=== PATIENT | female | born 1940 | race Caucasian/White ===

== ENCOUNTER 2019-09-11 18:55 | Inpatient (IN) ==
[2019-09-11] MEDS ORDERED: ONDANSETRON 4 MG/2 ML VIAL IV STA (19:47)
[2019-09-11] MEDS ORDERED: DIPH/TET/ACEL PERT BOOSTER VACCINE 0.5 ML VIAL IM ONE (19:47)
[2019-09-11] MEDS ORDERED: SODIUM CHLORIDE 0.9% 1,000 ML IV STA (19:47)
[2019-09-11 19:54] LABS: Basophils % 0.1 % (0.0-0.8); Eosinophils % 0.1 % (0.00-10.9); Hemoglobin 12.3 GM/DL (12.0-16.0); Immature Granulocytes % 0.5 %; Immature Granulocytes Absolute 0.06 #; Lymphocytes # 1.1 10*3/uL (1.4-4.0); Lymphocytes % 9.7 % (21.3-54.2); Mean Corpuscular HGB Conc 30.8 GM/DL (32-36); Mean Platelet Volume 10.6 FL (9.6-12.0); Monocytes % 5.8 % (1.7-12.7); Neutrophils % 83.8 % (38.7-73.9); Platelet Count 189 T/CUMM (130-400); Red Blood Count 4.21 MC/CUMM (3.8-5.5); Red Cell Distribution Width 15.5 % (9.3-17.3); White Blood Count 11.5 T/CUMM (4-12)
[2019-09-11 19:59] LABS: PT Patient Result 10.8 SECS (9.6-12.2)
[2019-09-11 20:17] LABS: Alanine Aminotransferase 41 U/L (13-56); Albumin 3.6 G/DL (3.4-5.0); Alkaline Phosphatase 67 U/L (45-117); Aspartate Amino Transferase 83 U/L (0-37); Blood Urea Nitrogen 36 MG/DL (7-18); CKMB % 1.5 %; Calcium 9.7 MG/DL (8.5-10.1); Estimated Glom Filtration Rate 70 ML/MIN; Glucose 97 MG/DL (74-106); Osmolality,Calculated 282.7 MOS/KG (273-304); Total Protein 7.4 G/DL (6.4-8.3); Troponin I 0.035 NG/ML (0.00-0.045)
[2019-09-11 20:30] LABS: Apearance,Urine CLEAR (Clear); Bacteria,Urine Occasional /HPF (Few); Bilirubin,Urine Negative (Negative); Blood, Urine Small mg/dL (Negative); Glucose,Urine (UA) Negative (Negative); Ketones,Urine 20 mg/dL (Negative); Nitrite,Urine Negative (Negative); Protein,Urine 100 MG/DL; RBC,Urine 2 /HPF (0-4); Squamous Epithelial Cell,Urine Occasional /HPF (0-10); Urine Color Yellow (Yellow); Urine Specific Gravity 1.021 (1.001-1.035); Urine Urobilinogen < 2.0 EU/DL (0.2-1.0); WBC,Urine 8 /HPF (0-6)
[2019-09-11 20:33] LABS: Barbiturates Screen,Urine Negative (Negative); Benzodiazepines Screen,Urine Negative (Negative); Cannabinoid Screen,Urine Negative (Negative); Opiate Screen,Urine Negative (Negative); Phencyclidine Screen,Urine Negative (Negative)
[2019-09-11] MEDS ORDERED: PIPERACILLIN/TAZOBACTAM 3,375 MG in SODIUM CHLORIDE 0.9% 100 ML IV STA (20:45)
[2019-09-11] MEDS ORDERED: DILTIAZEM 50 MG/10 ML VIAL IV STA (20:53)
[2019-09-11] MEDS ORDERED: ONDANSETRON 4 MG/2 ML VIAL IV PRN (22:56)
[2019-09-11] MEDS ORDERED: HYDROmorphone 2 MG/1 ML VIAL IV PRN (22:56)
[2019-09-11] MEDS: SODIUM CHLORIDE 0.9% 1,000 ML IV SCH (23:30)
[2019-09-12 00:22] LABS: Apearance,Urine CLEAR (Clear); Bilirubin,Urine Negative (Negative); Blood, Urine Small mg/dL (Negative); Glucose,Urine (UA) Negative (Negative); Hyaline Casts,Urine 4 /LPF (0-3); Ketones,Urine 20 mg/dL (Negative); Mucus,Urine Occasional /LPF (Occasional); Nitrite,Urine Negative (Negative); Protein,Urine 30 MG/DL; RBC,Urine 1 /HPF (0-4); Urine Color Yellow (Yellow); Urine Specific Gravity 1.021 (1.001-1.035); Urine Urobilinogen < 2.0 EU/DL (0.2-1.0); WBC,Urine 3 /HPF (0-6)
[2019-09-12] MEDS: ALBUTEROL/IPRATROPIUM 3 ML NEB RESP TX SCH ×6 (00:35→19:55)
[2019-09-12] MEDS: PIPERACILLIN/TAZOBACTAM 3,375 MG in SODIUM CHLORIDE 0.9% 100 ML IV SCH ×3 (04:39→22:20)
[2019-09-12 05:44] LABS: Albumin 2.8 G/DL (3.4-5.0); CKMB % 1.2 %; Calcium 8.6 MG/DL (8.5-10.1); Osmolality,Calculated 289.1 MOS/KG (273-304); Risk Ratio 3.68; VLDL CHOLESTEROL 18.6 MG/DL
[2019-09-12 05:45] LABS: Troponin I 0.05 NG/ML (0.00-0.045)
[2019-09-12 05:51] LABS: Basophils % 0.3 % (0.0-0.8); Eosinophils # 0.1 10*3/uL (0.0-0.87); Eosinophils % 0.6 % (0.00-10.9); Hematocrit 34.7 VOL% (35.7-47.0); Hemoglobin 10.6 GM/DL (12.0-16.0); Immature Granulocytes % 0.3 %; Immature Granulocytes Absolute 0.03 #; Lymphocytes % 11.1 % (21.3-54.2); Mean Corpuscular HGB Conc 30.5 GM/DL (32-36); Mean Corpuscular Volume 95.3 FL (87-102); Mean Platelet Volume 10.5 FL (9.6-12.0); Neutrophils % 79.7 % (38.7-73.9); Platelet Count 151 T/CUMM (130-400); Red Blood Count 3.64 MC/CUMM (3.8-5.5); Red Cell Distribution Width 15.6 % (9.3-17.3); White Blood Count 8.7 T/CUMM (4-12)
[2019-09-12] MEDS: SODIUM CHLORIDE 0.9% 1,000 ML IV SCH ×3 (07:57→21:24)
[2019-09-12] MEDS: PANTOPRAZOLE 40 MG VIAL IV SCH (08:58)
[2019-09-12] MEDS: DOCUSATE SODIUM 100 MG CAPSULE PO SCH ×2 (08:58→22:22)
[2019-09-12] MEDS: MENTHOL/ZINC OXIDE OINT 71 GM JAR TOP SCH ×2 (12:53→22:22)
[2019-09-12] MEDS: ACETAMINOPHEN 325 MG TABLET PO PRN (13:10)
[2019-09-12] MEDS ORDERED: POTASSIUM CHLORIDE 20 MEQ TABLET PO ONE (19:30)
[2019-09-12] MEDS: FERROUS SULFATE 325 MG TABLET PO SCH (22:22)
[2019-09-12] MEDS: carvediloL 12.5 MG TABLET PO SCH (22:22)
[2019-09-13] MEDS: ALBUTEROL/IPRATROPIUM 3 ML NEB RESP TX SCH ×7 (00:59→23:01)
[2019-09-13] MEDS: PIPERACILLIN/TAZOBACTAM 3,375 MG in SODIUM CHLORIDE 0.9% 100 ML IV SCH ×3 (05:26→21:05)
[2019-09-13 05:53] LABS: Basophils % 0.6 % (0.0-0.8); Eosinophils # 0.1 10*3/uL (0.0-0.87); Eosinophils % 1.9 % (0.00-10.9); Hematocrit 31.6 VOL% (35.7-47.0); Hemoglobin 9.9 GM/DL (12.0-16.0); Immature Granulocytes % 0.2 %; Immature Granulocytes Absolute 0.01 #; Lymphocytes # 1.1 10*3/uL (1.4-4.0); Lymphocytes % 20.4 % (21.3-54.2); Mean Corpuscular HGB Conc 31.3 GM/DL (32-36); Mean Corpuscular Volume 95.2 FL (87-102); Mean Platelet Volume 10.8 FL (9.6-12.0); Monocytes % 9.8 % (1.7-12.7); Neutrophils % 67.1 % (38.7-73.9); Platelet Count 135 T/CUMM (130-400); Red Blood Count 3.32 MC/CUMM (3.8-5.5); Red Cell Distribution Width 15.5 % (9.3-17.3); White Blood Count 5.2 T/CUMM (4-12)
[2019-09-13 06:09] LABS: Calcium 8.3 MG/DL (8.5-10.1); Osmolality,Calculated 285.3 MOS/KG (273-304)
[2019-09-13] MEDS ORDERED: ASPIRIN EC 81 MG TABLET PO SCH (08:00)
[2019-09-13] MEDS: POTASSIUM CHLORIDE 20 MEQ TABLET PO SCH (08:55)
[2019-09-13] MEDS: carvediloL 12.5 MG TABLET PO SCH ×2 (08:55→21:03)
[2019-09-13] MEDS: ASPIRIN EC 325 MG TABLET PO SCH (08:55)
[2019-09-13] MEDS: FERROUS SULFATE 325 MG TABLET PO SCH ×2 (08:55→21:03)
[2019-09-13] MEDS: DOCUSATE SODIUM 100 MG CAPSULE PO SCH (08:55)
[2019-09-13] MEDS: FEXOFENADINE 180 MG TABLET PO SCH (08:56)
[2019-09-13] MEDS: PANTOPRAZOLE 40 MG VIAL IV SCH (08:56)
[2019-09-13] MEDS: ESCITALOPRAM 10 MG TABLET PO SCH (08:56)
[2019-09-13] MEDS: MENTHOL/ZINC OXIDE OINT 71 GM JAR TOP SCH ×2 (09:51→21:08)
[2019-09-13] MEDS: ACETAMINOPHEN 325 MG TABLET PO PRN ×2 (09:51→21:03)
[2019-09-13] MEDS: SODIUM CHLORIDE 0.9% 1,000 ML IV SCH ×2 (11:57→20:28)
[2019-09-13] MEDS: DIGOXIN 0.125 MG TABLET PO SCH (12:34)
[2019-09-13] MEDS: traMADol 50 MG TABLET PO PRN (12:35)
[2019-09-13] MEDS: MELATONIN 3 MG TABLET PO PRN (21:03)
[2019-09-14] MEDS: ALBUTEROL/IPRATROPIUM 3 ML NEB RESP TX SCH ×6 (02:20→23:46)
[2019-09-14] MEDS: ACETAMINOPHEN 325 MG TABLET PO PRN ×4 (04:16→23:52)
[2019-09-14] MEDS: PIPERACILLIN/TAZOBACTAM 3,375 MG in SODIUM CHLORIDE 0.9% 100 ML IV SCH ×3 (04:18→21:54)
[2019-09-14] MEDS: SODIUM CHLORIDE 0.9% 1,000 ML IV SCH ×2 (04:21→15:42)
[2019-09-14 04:55] LABS: Basophils % 0.6 % (0.0-0.8); Eosinophils # 0.2 10*3/uL (0.0-0.87); Eosinophils % 3.5 % (0.00-10.9); Hematocrit 32.5 VOL% (35.7-47.0); Hemoglobin 9.8 GM/DL (12.0-16.0); Immature Granulocytes % 0.2 %; Immature Granulocytes Absolute 0.01 #; Lymphocytes % 19.9 % (21.3-54.2); Mean Corpuscular HGB Conc 30.2 GM/DL (32-36); Mean Corpuscular Volume 97.3 FL (87-102); Mean Platelet Volume 10.5 FL (9.6-12.0); Monocytes % 8.1 % (1.7-12.7); Neutrophils % 67.7 % (38.7-73.9); Platelet Count 147 T/CUMM (130-400); Red Blood Count 3.34 MC/CUMM (3.8-5.5); Red Cell Distribution Width 15.6 % (9.3-17.3); White Blood Count 4.8 T/CUMM (4-12)
[2019-09-14 05:34] LABS: Calcium 8.4 MG/DL (8.5-10.1); Osmolality,Calculated 285.1 MOS/KG (273-304)
[2019-09-14] MEDS: FEXOFENADINE 180 MG TABLET PO SCH (10:03)
[2019-09-14] MEDS: FERROUS SULFATE 325 MG TABLET PO SCH ×2 (10:03→21:53)
[2019-09-14] MEDS: POTASSIUM CHLORIDE 20 MEQ TABLET PO SCH (10:03)
[2019-09-14] MEDS: PANTOPRAZOLE 40 MG VIAL IV SCH (10:03)
[2019-09-14] MEDS: ASPIRIN EC 325 MG TABLET PO SCH (10:03)
[2019-09-14] MEDS: ESCITALOPRAM 10 MG TABLET PO SCH (10:03)
[2019-09-14] MEDS: carvediloL 12.5 MG TABLET PO SCH ×2 (10:03→21:53)
[2019-09-14] MEDS: MENTHOL/ZINC OXIDE OINT 71 GM JAR TOP SCH ×2 (10:04→21:53)
[2019-09-14] MEDS: DIGOXIN 0.125 MG TABLET PO SCH (12:54)
[2019-09-14] MEDS ORDERED: LEVOFLOXACIN INJ 500 MG in PREMIX 1 EACH IV SCH (13:30)
[2019-09-14] MEDS: LEVOFLOXACIN INJ 500 MG in PREMIX 1 EACH IV SCH (17:09)
[2019-09-14] MEDS: MELATONIN 3 MG TABLET PO PRN (21:53)
[2019-09-15] MEDS: SODIUM CHLORIDE 0.9% 1,000 ML IV SCH ×3 (01:59→22:18)
[2019-09-15] MEDS: ALBUTEROL/IPRATROPIUM 3 ML NEB RESP TX SCH ×5 (03:52→20:00)
[2019-09-15] MEDS: PIPERACILLIN/TAZOBACTAM 3,375 MG in SODIUM CHLORIDE 0.9% 100 ML IV SCH ×3 (05:15→21:39)
[2019-09-15 05:40] LABS: Basophils % 0.9 % (0.0-0.8); Eosinophils # 0.2 10*3/uL (0.0-0.87); Eosinophils % 4.3 % (0.00-10.9); Hematocrit 32.4 VOL% (35.7-47.0); Hemoglobin 9.7 GM/DL (12.0-16.0); Immature Granulocytes % 0.2 %; Immature Granulocytes Absolute 0.01 #; Lymphocytes # 0.9 10*3/uL (1.4-4.0); Lymphocytes % 19.8 % (21.3-54.2); Mean Corpuscular HGB Conc 29.9 GM/DL (32-36); Mean Corpuscular Volume 98.8 FL (87-102); Mean Platelet Volume 10.9 FL (9.6-12.0); Monocytes % 8.2 % (1.7-12.7); Neutrophils % 66.6 % (38.7-73.9); Platelet Count 154 T/CUMM (130-400); Red Blood Count 3.28 MC/CUMM (3.8-5.5); Red Cell Distribution Width 15.8 % (9.3-17.3); White Blood Count 4.6 T/CUMM (4-12)
[2019-09-15 05:56] LABS: Albumin 2.5 G/DL (3.4-5.0); Bilirubin,Total 0.9 MG/DL (0.2-1.0); Calcium 8.4 MG/DL (8.5-10.1); Total Protein 5.5 G/DL (6.4-8.3)
[2019-09-15] MEDS: ESCITALOPRAM 10 MG TABLET PO SCH (08:43)
[2019-09-15] MEDS: FERROUS SULFATE 325 MG TABLET PO SCH ×2 (08:43→21:39)
[2019-09-15] MEDS: ACETAMINOPHEN 325 MG TABLET PO PRN ×3 (08:44→22:03)
[2019-09-15] MEDS: POTASSIUM CHLORIDE 20 MEQ TABLET PO SCH (08:44)
[2019-09-15] MEDS: ASPIRIN EC 325 MG TABLET PO SCH (08:44)
[2019-09-15] MEDS: carvediloL 12.5 MG TABLET PO SCH ×2 (08:44→21:39)
[2019-09-15] MEDS: FEXOFENADINE 180 MG TABLET PO SCH (08:45)
[2019-09-15] MEDS: PANTOPRAZOLE 40 MG VIAL IV SCH (08:45)
[2019-09-15] MEDS: MENTHOL/ZINC OXIDE OINT 71 GM JAR TOP SCH ×2 (08:45→21:48)
[2019-09-15] MEDS: DIGOXIN 0.125 MG TABLET PO SCH (14:24)
[2019-09-15] MEDS: LEVOFLOXACIN INJ 500 MG in PREMIX 1 EACH IV SCH (17:13)
[2019-09-15] MEDS: ALUMINUM/MAGNES/SIMETH MAX STR 30 ML UDCUP PO PRN (17:13)
[2019-09-15] MEDS: traMADol 50 MG TABLET PO PRN (17:21)
[2019-09-15] MEDS: MEGESTROL 400 MG/10 ML UDCUP PO SCH (21:39)
[2019-09-15] MEDS: MELATONIN 3 MG TABLET PO PRN (21:39)
[2019-09-16] MEDS: ALBUTEROL/IPRATROPIUM 3 ML NEB RESP TX SCH ×6 (00:11→19:50)
[2019-09-16] MEDS: PIPERACILLIN/TAZOBACTAM 3,375 MG in SODIUM CHLORIDE 0.9% 100 ML IV SCH ×3 (05:32→21:33)
[2019-09-16] MEDS: SODIUM CHLORIDE 0.9% 1,000 ML IV SCH (06:20)
[2019-09-16] MEDS: FERROUS SULFATE 325 MG TABLET PO SCH ×2 (09:31→21:29)
[2019-09-16] MEDS: POTASSIUM CHLORIDE 20 MEQ TABLET PO SCH (09:31)
[2019-09-16] MEDS: carvediloL 12.5 MG TABLET PO SCH ×2 (09:31→21:28)
[2019-09-16] MEDS: SERTRALINE 25 MG TABLET PO SCH (09:31)
[2019-09-16] MEDS: ASPIRIN EC 325 MG TABLET PO SCH (09:31)
[2019-09-16] MEDS: PANTOPRAZOLE 40 MG VIAL IV SCH (09:32)
[2019-09-16] MEDS: MEGESTROL 400 MG/10 ML UDCUP PO SCH ×2 (09:32→21:28)
[2019-09-16] MEDS: FEXOFENADINE 180 MG TABLET PO SCH (09:32)
[2019-09-16] MEDS: MENTHOL/ZINC OXIDE OINT 71 GM JAR TOP SCH ×2 (09:35→21:29)
[2019-09-16] MEDS: traMADol 50 MG TABLET PO PRN ×2 (10:15→21:28)
[2019-09-16] MEDS: ALUMINUM/MAGNES/SIMETH MAX STR 30 ML UDCUP PO PRN ×2 (11:57→21:59)
[2019-09-16] MEDS: DIGOXIN 0.125 MG TABLET PO SCH (13:08)
[2019-09-16] MEDS: ACETAMINOPHEN 325 MG TABLET PO PRN (13:09)
[2019-09-16 14:07] LABS: Troponin I 0.346 NG/ML (0.00-0.045)
[2019-09-16] MEDS: LEVOFLOXACIN INJ 500 MG in PREMIX 1 EACH IV SCH (18:04)
[2019-09-16] MEDS: RIVAROXABAN 15 MG TABLET PO SCH (21:29)
[2019-09-16] MEDS: MELATONIN 3 MG TABLET PO PRN (21:29)
[2019-09-17] MEDS: ALBUTEROL/IPRATROPIUM 3 ML NEB RESP TX SCH ×6 (00:11→19:28)
[2019-09-17] MEDS: ACETAMINOPHEN 325 MG TABLET PO PRN (05:55)
[2019-09-17] MEDS: PIPERACILLIN/TAZOBACTAM 3,375 MG in SODIUM CHLORIDE 0.9% 100 ML IV SCH ×3 (05:56→21:49)
[2019-09-17 05:57] LABS: Basophils % 0.5 % (0.0-0.8); Eosinophils # 0.2 10*3/uL (0.0-0.87); Eosinophils % 2.9 % (0.00-10.9); Hematocrit 33.1 VOL% (35.7-47.0); Hemoglobin 9.9 GM/DL (12.0-16.0); Immature Granulocytes % 0.4 %; Immature Granulocytes Absolute 0.02 #; Lymphocytes # 1.1 10*3/uL (1.4-4.0); Lymphocytes % 19.5 % (21.3-54.2); Mean Corpuscular HGB Conc 29.9 GM/DL (32-36); Mean Corpuscular Volume 97.1 FL (87-102); Mean Platelet Volume 10.5 FL (9.6-12.0); Monocytes % 6.8 % (1.7-12.7); Neutrophils % 69.9 % (38.7-73.9); Platelet Count 167 T/CUMM (130-400); Red Blood Count 3.41 MC/CUMM (3.8-5.5); Red Cell Distribution Width 15.5 % (9.3-17.3); White Blood Count 5.6 T/CUMM (4-12)
[2019-09-17 06:15] LABS: Calcium 8.5 MG/DL (8.5-10.1); Osmolality,Calculated 280.4 MOS/KG (273-304)
[2019-09-17] MEDS: FEXOFENADINE 180 MG TABLET PO SCH (08:26)
[2019-09-17] MEDS: FERROUS SULFATE 325 MG TABLET PO SCH ×2 (08:26→21:49)
[2019-09-17] MEDS: SERTRALINE 25 MG TABLET PO SCH (08:26)
[2019-09-17] MEDS: OLMESARTAN 20 MG TABLET PO SCH (08:26)
[2019-09-17] MEDS: POTASSIUM CHLORIDE 20 MEQ TABLET PO SCH (08:26)
[2019-09-17] MEDS: carvediloL 12.5 MG TABLET PO SCH (08:26)
[2019-09-17] MEDS: ASPIRIN EC 325 MG TABLET PO SCH (08:26)
[2019-09-17] MEDS: MEGESTROL 400 MG/10 ML UDCUP PO SCH ×2 (08:27→21:49)
[2019-09-17] MEDS: PANTOPRAZOLE 40 MG VIAL IV SCH (08:27)
[2019-09-17] MEDS: traMADol 50 MG TABLET PO PRN ×2 (08:28→21:48)
[2019-09-17] MEDS: MENTHOL/ZINC OXIDE OINT 71 GM JAR TOP SCH ×2 (08:34→21:57)
[2019-09-17] MEDS ORDERED: FUROSEMIDE 20 MG/2 ML VIAL IV ONE (11:00)
[2019-09-17] MEDS: DIGOXIN 0.125 MG TABLET PO SCH (13:28)
[2019-09-17] MEDS ORDERED: TUBERCULIN SKIN TEST 0.1 ML SYRINGE INTRADERM ONE (15:00)
[2019-09-17] MEDS: LEVOFLOXACIN INJ 500 MG in PREMIX 1 EACH IV SCH (16:08)
[2019-09-17] MEDS: carvediloL 25 MG TABLET PO SCH (16:10)
[2019-09-17] MEDS: MELATONIN 3 MG TABLET PO PRN (21:48)
[2019-09-17] MEDS: RIVAROXABAN 15 MG TABLET PO SCH (21:49)
[2019-09-18] MEDS: ALBUTEROL/IPRATROPIUM 3 ML NEB RESP TX SCH ×6 (00:35→18:42)
[2019-09-18] MEDS: ACETAMINOPHEN 325 MG TABLET PO PRN ×3 (02:24→21:52)
[2019-09-18 04:57] LABS: Basophils % 0.3 % (0.0-0.8); Eosinophils # 0.2 10*3/uL (0.0-0.87); Eosinophils % 2.6 % (0.00-10.9); Hematocrit 32.5 VOL% (35.7-47.0); Hemoglobin 9.8 GM/DL (12.0-16.0); Immature Granulocytes % 0.5 %; Immature Granulocytes Absolute 0.03 #; Lymphocytes # 1.1 10*3/uL (1.4-4.0); Lymphocytes % 18.1 % (21.3-54.2); Mean Corpuscular HGB Conc 30.2 GM/DL (32-36); Mean Corpuscular Volume 95.6 FL (87-102); Mean Platelet Volume 10.6 FL (9.6-12.0); Monocytes % 7.3 % (1.7-12.7); Neutrophils % 71.2 % (38.7-73.9); Platelet Count 191 T/CUMM (130-400); Red Cell Distribution Width 15.6 % (9.3-17.3); White Blood Count 6.1 T/CUMM (4-12)
[2019-09-18 05:23] LABS: Calcium 8.3 MG/DL (8.5-10.1); Osmolality,Calculated 282.4 MOS/KG (273-304)
[2019-09-18] MEDS: PIPERACILLIN/TAZOBACTAM 3,375 MG in SODIUM CHLORIDE 0.9% 100 ML IV SCH ×3 (05:42→21:51)
[2019-09-18] MEDS: MEGESTROL 400 MG/10 ML UDCUP PO SCH ×2 (09:30→21:53)
[2019-09-18] MEDS: ASPIRIN EC 325 MG TABLET PO SCH ×2 (09:30→10:43)
[2019-09-18] MEDS: OLMESARTAN 20 MG TABLET PO SCH (09:30)
[2019-09-18] MEDS: POTASSIUM CHLORIDE 20 MEQ TABLET PO SCH (09:31)
[2019-09-18] MEDS: SERTRALINE 25 MG TABLET PO SCH (09:31)
[2019-09-18] MEDS: FEXOFENADINE 180 MG TABLET PO SCH (09:31)
[2019-09-18] MEDS: FERROUS SULFATE 325 MG TABLET PO SCH ×2 (09:31→21:53)
[2019-09-18] MEDS: MENTHOL/ZINC OXIDE OINT 71 GM JAR TOP SCH ×2 (09:32→21:52)
[2019-09-18] MEDS: carvediloL 25 MG TABLET PO SCH ×2 (09:32→17:05)
[2019-09-18] MEDS: PANTOPRAZOLE 40 MG VIAL IV SCH (09:32)
[2019-09-18] MEDS: ASPIRIN EC 81 MG TABLET PO SCH (11:08)
[2019-09-18] MEDS: DIGOXIN 0.125 MG TABLET PO SCH (12:12)
[2019-09-18] MEDS: LEVOFLOXACIN INJ 500 MG in PREMIX 1 EACH IV SCH (17:05)
[2019-09-18] MEDS: ALUMINUM/MAGNES/SIMETH MAX STR 30 ML UDCUP PO PRN (17:05)
[2019-09-18] MEDS: MELATONIN 3 MG TABLET PO PRN (21:53)
[2019-09-18] MEDS: RIVAROXABAN 15 MG TABLET PO SCH (21:53)
[2019-09-18] MEDS: FLUTICASONE 50 MCG NASAL SPRAY 16 GM BOTTLE BOTH NARES SCH (22:02)
[2019-09-19] MEDS: ALBUTEROL/IPRATROPIUM 3 ML NEB RESP TX SCH ×7 (01:26→23:47)
[2019-09-19 04:29] LABS: Basophils % 0.5 % (0.0-0.8); Eosinophils # 0.1 10*3/uL (0.0-0.87); Eosinophils % 1.8 % (0.00-10.9); Hematocrit 32.2 VOL% (35.7-47.0); Hemoglobin 9.7 GM/DL (12.0-16.0); Immature Granulocytes % 0.4 %; Immature Granulocytes Absolute 0.02 #; Lymphocytes # 1.1 10*3/uL (1.4-4.0); Lymphocytes % 19.1 % (21.3-54.2); Mean Corpuscular HGB Conc 30.1 GM/DL (32-36); Mean Corpuscular Volume 97.9 FL (87-102); Mean Platelet Volume 10.6 FL (9.6-12.0); Monocytes % 6.4 % (1.7-12.7); Neutrophils % 71.8 % (38.7-73.9); Platelet Count 196 T/CUMM (130-400); Red Blood Count 3.29 MC/CUMM (3.8-5.5); Red Cell Distribution Width 15.5 % (9.3-17.3); White Blood Count 5.5 T/CUMM (4-12)
[2019-09-19 05:04] LABS: Calcium 8.6 MG/DL (8.5-10.1); Osmolality,Calculated 288.1 MOS/KG (273-304)
[2019-09-19] MEDS: PIPERACILLIN/TAZOBACTAM 3,375 MG in SODIUM CHLORIDE 0.9% 100 ML IV SCH ×2 (05:25→11:59)
[2019-09-19] MEDS: carvediloL 25 MG TABLET PO SCH ×2 (08:51→17:55)
[2019-09-19] MEDS: POTASSIUM CHLORIDE 20 MEQ TABLET PO SCH (08:51)
[2019-09-19] MEDS: MEGESTROL 400 MG/10 ML UDCUP PO SCH ×2 (08:51→21:52)
[2019-09-19] MEDS: OLMESARTAN 20 MG TABLET PO SCH (08:51)
[2019-09-19] MEDS: ASPIRIN EC 81 MG TABLET PO SCH (08:52)
[2019-09-19] MEDS: ACETAMINOPHEN 325 MG TABLET PO PRN ×2 (08:52→21:52)
[2019-09-19] MEDS: PANTOPRAZOLE 40 MG VIAL IV SCH (08:52)
[2019-09-19] MEDS: FERROUS SULFATE 325 MG TABLET PO SCH ×2 (08:52→21:52)
[2019-09-19] MEDS: SERTRALINE 25 MG TABLET PO SCH (08:52)
[2019-09-19] MEDS: FEXOFENADINE 180 MG TABLET PO SCH (08:52)
[2019-09-19] MEDS: MENTHOL/ZINC OXIDE OINT 71 GM JAR TOP SCH ×2 (08:53→21:53)
[2019-09-19] MEDS: DIGOXIN 0.125 MG TABLET PO SCH (11:59)
[2019-09-19] MEDS: LEVOFLOXACIN INJ 500 MG in PREMIX 1 EACH IV SCH (17:55)
[2019-09-19] MEDS: ALUMINUM/MAGNES/SIMETH MAX STR 30 ML UDCUP PO PRN (17:55)
[2019-09-19] MEDS: FLUTICASONE 50 MCG NASAL SPRAY 16 GM BOTTLE BOTH NARES SCH (21:52)
[2019-09-19] MEDS: MELATONIN 3 MG TABLET PO PRN (21:52)
[2019-09-19] MEDS: RIVAROXABAN 15 MG TABLET PO SCH (21:52)
[2019-09-20] MEDS: ALBUMIN 25% 25 GM in PREMIX 1 EACH IV SCH ×2 (01:50→09:18)
[2019-09-20] MEDS: ALBUTEROL/IPRATROPIUM 3 ML NEB RESP TX SCH ×3 (02:00→11:10)
[2019-09-20] MEDS: ACETAMINOPHEN 325 MG TABLET PO PRN ×2 (04:02→13:49)
[2019-09-20 04:58] LABS: Basophils % 0.7 % (0.0-0.8); Eosinophils # 0.1 10*3/uL (0.0-0.87); Eosinophils % 1.8 % (0.00-10.9); Hematocrit 31.1 VOL% (35.7-47.0); Hemoglobin 9.5 GM/DL (12.0-16.0); Immature Granulocytes % 0.4 %; Immature Granulocytes Absolute 0.02 #; Lymphocytes # 1.2 10*3/uL (1.4-4.0); Lymphocytes % 22.2 % (21.3-54.2); Mean Corpuscular HGB Conc 30.5 GM/DL (32-36); Mean Corpuscular Volume 95.7 FL (87-102); Mean Platelet Volume 10.1 FL (9.6-12.0); Neutrophils % 67.9 % (38.7-73.9); Platelet Count 192 T/CUMM (130-400); Red Blood Count 3.25 MC/CUMM (3.8-5.5); Red Cell Distribution Width 15.5 % (9.3-17.3); White Blood Count 5.5 T/CUMM (4-12)
[2019-09-20 05:27] LABS: Calcium 9.1 MG/DL (8.5-10.1); Osmolality,Calculated 283.3 MOS/KG (273-304)
[2019-09-20] MEDS: carvediloL 25 MG TABLET PO SCH (09:19)
[2019-09-20] MEDS: MEGESTROL 400 MG/10 ML UDCUP PO SCH (09:19)
[2019-09-20] MEDS: OLMESARTAN 20 MG TABLET PO SCH (09:19)
[2019-09-20] MEDS: FEXOFENADINE 180 MG TABLET PO SCH (09:20)
[2019-09-20] MEDS: ASPIRIN EC 81 MG TABLET PO SCH (09:20)
[2019-09-20] MEDS: POTASSIUM CHLORIDE 20 MEQ TABLET PO SCH (09:20)
[2019-09-20] MEDS: SERTRALINE 25 MG TABLET PO SCH (09:20)
[2019-09-20] MEDS: FERROUS SULFATE 325 MG TABLET PO SCH (09:20)
[2019-09-20] MEDS: PANTOPRAZOLE 40 MG VIAL IV SCH (10:11)
[2019-09-20 12:23] VITALS: BP 145/82
[2019-09-20] MEDS: MENTHOL/ZINC OXIDE OINT 71 GM JAR TOP SCH (13:48)
[2019-09-20] MEDS: DIGOXIN 0.125 MG TABLET PO SCH (13:48)
== END 2019-09-20 13:50 | DRG 564 ==
LOC: EDBD → EDUNIT# → N.ED 18:55 → N.EDINP 21:00 → N.TELES 22:26
PROVIDERS: ADMIT Internal Medicine; ATTEND Internal Medicine

== ENCOUNTER 2019-10-13 14:45 | Inpatient (IN) ==
[2019-10-13] MEDS ORDERED: SODIUM CHLORIDE 0.9% 500 ML IV STA (15:19)
[2019-10-13 15:23] LABS: Basophils % 0.2 % (0.0-0.8); Eosinophils # 0.1 10*3/uL (0.0-0.87); Eosinophils % 0.8 % (0.00-10.9); Hematocrit 38.7 VOL% (35.7-47.0); Immature Granulocytes % 0.7 %; Immature Granulocytes Absolute 0.08 #; Lymphocytes # 1.1 10*3/uL (1.4-4.0); Lymphocytes % 10.2 % (21.3-54.2); Mean Platelet Volume 10.1 FL (9.6-12.0); Monocytes % 4.8 % (1.7-12.7); Neutrophils % 83.3 % (38.7-73.9); Platelet Count 140 T/CUMM (130-400); Red Blood Count 4.03 MC/CUMM (3.8-5.5); Red Cell Distribution Width 16.3 % (9.3-17.3); White Blood Count 11.1 T/CUMM (4-12)
[2019-10-13 15:30] LABS: INR 1.1; PT Patient Result 11.6 SECS (9.8-11.9)
[2019-10-13 15:37] LABS: Albumin 3.5 G/DL (3.4-5.0); Bilirubin,Total 0.5 MG/DL (0.2-1.0); Calcium 8.6 MG/DL (8.5-10.1); Osmolality,Calculated 288.3 MOS/KG (273-304); Total Protein 6.5 G/DL (6.4-8.3)
[2019-10-13] MEDS ORDERED: ONDANSETRON 4 MG/2 ML VIAL IV STA (15:53)
[2019-10-13] MEDS ORDERED: HYDROmorphone 2 MG/1 ML VIAL IV STA (15:53)
[2019-10-13] MEDS ORDERED: MAGNESIUM HYDROXIDE SUSP 30 ML UDCUP PO PRN (16:08)
[2019-10-13] MEDS ORDERED: ACETAMINOPHEN 325 MG TABLET PO PRN (16:12)
[2019-10-13] MEDS ORDERED: FLUTICASONE 50 MCG NASAL SPRAY 16 GM BOTTLE BOTH NARES PRN (16:12)
[2019-10-13] MEDS ORDERED: MELATONIN 3 MG TABLET PO PRN (16:12)
[2019-10-13] MEDS ORDERED: POLYETHYLENE GLYCOL POWDER 17 GM PACK PO PRN (16:12)
[2019-10-13] MEDS: DEXTROSE 5% NACL 0.45% 1,000 ML IV SCH (17:18)
[2019-10-13 19:24] LABS: Apearance,Urine CLEAR (Clear); Bilirubin,Urine Negative (Negative); Blood, Urine Negative (Negative); Glucose,Urine (UA) Negative (Negative); Ketones,Urine Negative (Negative); Mucus,Urine Occasional /LPF (Occasional); Nitrite,Urine Negative (Negative); Protein,Urine Negative; RBC,Urine 6 /HPF (0-4); Squamous Epithelial Cell,Urine Occasional /HPF (0-10); Urine Color Yellow (Yellow); Urine Specific Gravity 1.016 (1.001-1.035); Urine Urobilinogen < 2.0 EU/DL (0.2-1.0); WBC,Urine 1 /HPF (0-6)
[2019-10-13] MEDS: MEGESTROL 400 MG/10 ML UDCUP PO SCH (20:42)
[2019-10-13] MEDS: carvediloL 12.5 MG TABLET PO SCH (20:42)
[2019-10-13] MEDS: FERROUS SULFATE 325 MG TABLET PO SCH (20:43)
[2019-10-13] MEDS: MAGNESIUM CHLORIDE 64 MG TABLET PO SCH (20:43)
[2019-10-13] MEDS ORDERED: ENOXAPARIN 30 MG/0.3 ML SYRINGE SUBCUT SCH (21:00)
[2019-10-14] MEDS ORDERED: ceFAZolin 2,000 MG in PREMIX 1 EACH IV ONE (07:50)
[2019-10-14] MEDS ORDERED: NF- (Mirabegron [Myrbetriq] 25 MG) PO SCH (09:00)
[2019-10-14] MEDS ORDERED: diphenhydrAMINE CAP 25 MG CAPSULE PO PRN (10:08)
[2019-10-14] MEDS ORDERED: PROMETHAZINE 25 MG/1 ML VIAL IM PRN (10:08)
[2019-10-14] MEDS ORDERED: LACTULOSE 20 GM/30 ML UDCUP PO PRN (10:08)
[2019-10-14] MEDS ORDERED: ONDANSETRON 4 MG/2 ML VIAL IV PRN (10:08)
[2019-10-14] MEDS ORDERED: MAGNESIUM HYDROXIDE SUSP 30 ML UDCUP PO PRN (10:08)
[2019-10-14] MEDS ORDERED: BISACODYL 10 MG SUPP RECTAL PRN (10:08)
[2019-10-14] MEDS ORDERED: MORPHINE 4 MG/1 ML VIAL IV PRN ×2 (10:08→10:26)
[2019-10-14] MEDS ORDERED: traMADol 50 MG TABLET PO PRN (10:11)
[2019-10-14] MEDS ORDERED: SEVOFLURANE 1 UNIT/15 MINUTE INH ONE (10:25)
[2019-10-14] MEDS ORDERED: LIDOCAINE 2% 5 ML VIAL ONE (10:26)
[2019-10-14] MEDS ORDERED: fentaNYL 100 MCG/2 ML VIAL ONE (10:26)
[2019-10-14] MEDS ORDERED: propofoL 200 MG/20 ML VIAL IV ONE (10:26)
[2019-10-14] MEDS ORDERED: LACTATED RINGERS 1,000 ML IV ONE (10:27)
[2019-10-14] MEDS ORDERED: ONDANSETRON 4 MG/2 ML VIAL ONE (10:27)
[2019-10-14] MEDS ORDERED: ETOMIDATE 40 MG/20 ML VIAL IV ONE (10:27)
[2019-10-14] MEDS ORDERED: PHENYLEPHRINE 1 MG/10 ML SYRINGE IV ONE (10:27)
[2019-10-14] MEDS ORDERED: ROCURONIUM 100 MG/10 ML VIAL IV ONE (10:27)
[2019-10-14] MEDS: VALSARTAN 80 MG TABLET PO SCH (11:07)
[2019-10-14] MEDS: carvediloL 12.5 MG TABLET PO SCH ×2 (11:07→21:01)
[2019-10-14] MEDS: MULTIVITAMIN (CENTRUM) TABLET PO SCH (11:07)
[2019-10-14] MEDS: FEXOFENADINE 180 MG TABLET PO SCH (11:07)
[2019-10-14] MEDS: POTASSIUM CHLORIDE 20 MEQ TABLET PO SCH (11:08)
[2019-10-14] MEDS: CHOLECALCIFEROL 1,000 UNIT TABLET PO SCH (11:08)
[2019-10-14] MEDS: FERROUS SULFATE 325 MG TABLET PO SCH ×2 (11:08→21:02)
[2019-10-14] MEDS: DIGOXIN 0.125 MG TABLET PO SCH (11:08)
[2019-10-14] MEDS: MAGNESIUM CHLORIDE 64 MG TABLET PO SCH ×2 (11:08→21:02)
[2019-10-14] MEDS: MEGESTROL 400 MG/10 ML UDCUP PO SCH ×2 (11:08→21:02)
[2019-10-14] MEDS ORDERED: SKIN HEALING OINT (AQUAPHOR) 50 GM TUBE TOP PRN (15:21)
[2019-10-14] MEDS: ceFAZolin 1,000 MG in SYRINGE 1 EACH IV SCH (15:34)
[2019-10-14] MEDS ORDERED: METOPROLOL TARTRATE 5 MG/5 ML VIAL IV PRN (15:37)
[2019-10-14] MEDS: DEXTROSE 5% NACL 0.45% 1,000 ML IV SCH ×2 (21:01→22:10)
[2019-10-14] MEDS: DOCUSATE SODIUM 100 MG CAPSULE PO SCH (21:01)
[2019-10-14] MEDS: RIVAROXABAN 15 MG TABLET PO SCH (21:02)
[2019-10-14] MEDS: PANTOPRAZOLE 40 MG TABLET PO SCH (21:02)
[2019-10-15] MEDS: ceFAZolin 1,000 MG in SYRINGE 1 EACH IV SCH (00:37)
[2019-10-15 05:10] LABS: Basophils % 0.6 % (0.0-0.8); Eosinophils # 0.2 10*3/uL (0.0-0.87); Eosinophils % 2.9 % (0.00-10.9); Hematocrit 31.3 VOL% (35.7-47.0); Hemoglobin 9.7 GM/DL (12.0-16.0); Immature Granulocytes % 0.3 %; Immature Granulocytes Absolute 0.02 #; Lymphocytes # 1.2 10*3/uL (1.4-4.0); Lymphocytes % 17.8 % (21.3-54.2); Mean Corpuscular Volume 94.6 FL (87-102); Mean Platelet Volume 10.2 FL (9.6-12.0); Monocytes % 5.7 % (1.7-12.7); Neutrophils % 72.7 % (38.7-73.9); Red Blood Count 3.31 MC/CUMM (3.8-5.5); White Blood Count 6.5 T/CUMM (4-12)
[2019-10-15 05:11] LABS: Platelet Count 84 T/CUMM (130-400)
[2019-10-15 05:28] LABS: Hypochromasia 1+; Microcytosis 1+; Ovalocytes Slight; Platelet Estimate Decreased
[2019-10-15 05:33] LABS: Calcium 8.2 MG/DL (8.5-10.1); Osmolality,Calculated 285.5 MOS/KG (273-304)
[2019-10-15] MEDS: FEXOFENADINE 180 MG TABLET PO SCH (08:43)
[2019-10-15] MEDS: MULTIVITAMIN (CENTRUM) TABLET PO SCH (08:43)
[2019-10-15] MEDS: carvediloL 12.5 MG TABLET PO SCH ×2 (08:43→22:14)
[2019-10-15] MEDS: ASPIRIN EC 81 MG TABLET PO SCH (08:43)
[2019-10-15] MEDS: DOCUSATE SODIUM 100 MG CAPSULE PO SCH ×2 (08:43→22:15)
[2019-10-15] MEDS: SERTRALINE 25 MG TABLET PO SCH (08:44)
[2019-10-15] MEDS: DIGOXIN 0.125 MG TABLET PO SCH (08:44)
[2019-10-15] MEDS: POTASSIUM CHLORIDE 20 MEQ TABLET PO SCH (08:44)
[2019-10-15] MEDS: FERROUS SULFATE 325 MG TABLET PO SCH ×2 (08:44→22:14)
[2019-10-15] MEDS: MEGESTROL 400 MG/10 ML UDCUP PO SCH ×2 (08:44→22:14)
[2019-10-15] MEDS: VALSARTAN 80 MG TABLET PO SCH (08:44)
[2019-10-15] MEDS: MAGNESIUM CHLORIDE 64 MG TABLET PO SCH ×2 (08:44→22:15)
[2019-10-15] MEDS: CHOLECALCIFEROL 1,000 UNIT TABLET PO SCH (08:44)
[2019-10-15] MEDS: DEXT 5% NACL 0.45% KCL 20 MEQ 20 MEQ/1,000 ML BAG IV SCH (14:02)
[2019-10-15] MEDS: PANTOPRAZOLE 40 MG TABLET PO SCH (22:14)
[2019-10-15] MEDS: RIVAROXABAN 15 MG TABLET PO SCH (22:15)
[2019-10-16 05:51] LABS: Basophils % 0.1 % (0.0-0.8); Eosinophils % 0.3 % (0.00-10.9); Hematocrit 30.8 VOL% (35.7-47.0); Hemoglobin 9.4 GM/DL (12.0-16.0); Immature Granulocytes Absolute 0.07 #; Lymphocytes # 0.8 10*3/uL (1.4-4.0); Lymphocytes % 11.5 % (21.3-54.2); Mean Corpuscular HGB Conc 30.5 GM/DL (32-36); Mean Platelet Volume 10.8 FL (9.6-12.0); Monocytes % 3.7 % (1.7-12.7); Neutrophils % 83.4 % (38.7-73.9); Platelet Count 89 T/CUMM (130-400); Red Blood Count 3.21 MC/CUMM (3.8-5.5); White Blood Count 7.3 T/CUMM (4-12)
[2019-10-16 06:03] LABS: Calcium 8.3 MG/DL (8.5-10.1); Osmolality,Calculated 285.7 MOS/KG (273-304)
[2019-10-16 06:09] LABS: Prealbumin 14.6 MG/DL (20-40)
[2019-10-16 06:26] LABS: Hypochromasia Slight; Lymphocytes 10 % (20-55); Platelet Estimate Decreased; Segmented Neutrophils 87 % (50-85); Total Cells Counted 100
[2019-10-16] MEDS: DEXT 5% NACL 0.45% KCL 20 MEQ 20 MEQ/1,000 ML BAG IV SCH ×2 (07:30→14:18)
[2019-10-16] MEDS: POTASSIUM CHLORIDE 20 MEQ TABLET PO SCH (09:38)
[2019-10-16] MEDS: DOCUSATE SODIUM 100 MG CAPSULE PO SCH (09:38)
[2019-10-16] MEDS: MULTIVITAMIN (CENTRUM) TABLET PO SCH (09:38)
[2019-10-16] MEDS: FEXOFENADINE 180 MG TABLET PO SCH (09:39)
[2019-10-16] MEDS: SERTRALINE 25 MG TABLET PO SCH (09:39)
[2019-10-16] MEDS: ASPIRIN EC 81 MG TABLET PO SCH (09:39)
[2019-10-16] MEDS: MAGNESIUM CHLORIDE 64 MG TABLET PO SCH (09:39)
[2019-10-16] MEDS: CHOLECALCIFEROL 1,000 UNIT TABLET PO SCH (09:40)
[2019-10-16] MEDS: carvediloL 12.5 MG TABLET PO SCH (09:40)
[2019-10-16] MEDS: DIGOXIN 0.125 MG TABLET PO SCH (09:40)
[2019-10-16] MEDS: VALSARTAN 80 MG TABLET PO SCH (09:41)
[2019-10-16] MEDS: FERROUS SULFATE 325 MG TABLET PO SCH (09:41)
[2019-10-16] MEDS: MEGESTROL 400 MG/10 ML UDCUP PO SCH (09:41)
[2019-10-16] MEDS ORDERED: FUROSEMIDE 40 MG/4 ML VIAL IV ONE (20:45)
[2019-10-16] MEDS ORDERED: SIMVASTATIN 10 MG TABLET PO SCH (21:00)
[2019-10-17 00:34] VITALS: BP 115/55
[2019-10-17] MEDS ORDERED: FAMOTIDINE 20 MG TABLET PO SCH (09:00)
== END 2019-10-16 23:00 | disposition expired | DRG 469 ==
LOC: EDUNIT# → EDBD → N.ED 14:45 → N.EDINP 16:08 → N.3E 16:38
PROVIDERS: ADMIT Internal Medicine; ATTEND Internal Medicine